=== PATIENT | female | born 1955 | race Caucasian/White ===

== ENCOUNTER 2022-06-02 10:39 | Day surgery (SDC) | payer MEDICARE, OTHER ==
[~2022-06-02] VITALS: Ht 160 cm; Wt 59.0 kg
[2022-06-02] MEDS ORDERED: fentaNYL citrate 0.05 MG/ML VIAL ONE (13:48)
[2022-06-02] MEDS ORDERED: MIDAZOLAM 5 MG/5 ML VIAL ONE ×2 (13:49→14:15)
[2022-06-02] MEDS ORDERED: LIDOCAINE 2% 100 MG/5 ML UJET TP ONE (13:49)
[2022-06-02] MEDS ORDERED: MIDAZOLAM 2 MG/2 ML VIAL IVP ONE (15:00)
[2022-06-02] MEDS ORDERED: fentaNYL citrate 0.05 MG/ML VIAL IVP ONE (15:00)
[2022-06-02] MEDS ORDERED: KETOROLAC 30 MG/ML VIAL IVP ONE (15:20)
[2022-06-02] MEDS ORDERED: KETOROLAC 30 MG/ML VIAL ONE (15:24)
[2022-06-02] MEDS ORDERED: KETOROLAC 30 MG/ML VIAL IM SCH (15:25)
== END 2022-06-02 16:30 | disposition home or self-care (01) ==
LOC: MDS 10:39 → MMU 10:55 → MDS 16:30
PROVIDERS: ATTEND Internal Medicine Gastroenterology
DX: Z12.11 Encounter for screening for malignant neoplasm of colon (principal); D12.8 Benign neoplasm of rectum; K22.2 Esophageal obstruction; I10 Essential (primary) hypertension; Z20.822 Contact with and (suspected) exposure to COVID-19; Z80.0 Family history of malignant neoplasm of digestive organs; Z87.891 Personal history of nicotine dependence; Z90.89 Acquired absence of other organs; Z79.899 Other long term (current) drug therapy
CPT/HCPCS: 43248; 45385; 87426; J1885; J2250; J3010